=== PATIENT | male | born 1990 | race Caucasian/White ===

== ENCOUNTER → 2021-06-26 | Day surgery (SDC) | payer OTHER ==
[~2021-06-26] MED LIST: ACET325T9 PO; BACL10TA PO; GABA800T5 PO; POTA20TA40 PO
[2021-06-26 09:36] VITALS: BP 115/60
== END ==
LOC: SURG 09:23
PROVIDERS: ATTEND Anesthesiology
DX: M54.16 Radiculopathy, lumbar region (principal); Z79.899 Other long term (current) drug therapy
CPT/HCPCS: 99204; G0463